=== PATIENT | male | born 1990 | race Caucasian/White ===

== ENCOUNTER 2018-07-18 07:05 | Emergency (ER) | payer OTHER, SELFPAY ==
[2018-07-18 07:10] VITALS: BP 136/89; PULSE 87; RESP 16; TEMP 36.2; O2SAT 96
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
[2018-07-18] MEDS: Tetracaine 0.5% 4 ML BTL (08:13)
== END 2018-07-18 08:15 | disposition home or self-care (01) ==
PROVIDERS: Emergency Provider Emergency Medicine; PCP Physician Assistant Medical
DX: T15.92XA Foreign body on external eye, part unspecified, left eye, initial encounter (principal); H57.12 Ocular pain, left eye; W25.XXXA Contact with sharp glass, initial encounter; V60.5XXA Driver of heavy transport vehicle injured in collision with pedestrian or animal in traffic accident, initial encounter; Y99.0 Civilian activity done for income or pay
CPT/HCPCS: 99284

== ENCOUNTER 2020-01-31 17:13 | Emergency (ER) | payer SELFPAY ==
[2020-01-31 17:20] VITALS: BP 105/87; PULSE 83; RESP 16; TEMP 37; O2SAT 96
--- NOTE | 2020-01-31 17:27 | W.ED.GENAD ---
Discharge Plan Disposition Patient Disposition: HOME Condition: Improving Discharge Details Chief Complaint: Laceration Clinical Impression: Laceration of right thumb Primary Care Provider: Bri Abbott ED Provider: Mike Chowdary Home Meds and New Rx's Prescriptions: No Action No Known Home Meds RF: 0 Discharge Instructions Instructions: Laceration (ED) Additional Instructions: May apply ice to reduce discomfort. Elevate the hand to reduce discomfort. May use Tylenol and/or ibuprofen as needed for pain. Leave the current dressing in place for 48 to 72 hours, then may remove, gently wash with soap and water, pat dry and replace dressing every 24 hours as we discussed. Return in 7 to 8 days time for suture removal. Return sooner for any acute concerns. Medical Decision Making 29-year-old male presents from home after lacerating the volar surface of his right thumb with a mandolin in his kitchen. No motor or sensory deficits. Patient anesthetized with a digital block, examined in a bloodless field without evidence of foreign body. Repaired with 3 interrupted nylon sutures. Wound dressed. Discussed the patient home care as well as indications to return and timing to seek evaluation for removal of sutures. HPI General Mode of arrival: ambulatory. Date/Time Provider Initiated Documentation: 01/31/20 17:27. Limitations to Documentation: no limitations. Information obtained by: patient. History of Present Illness 29 year old M presents to the emergency department with the chief complaint of Right thumb laceration at home, described as moderate, Quality is described as dull and constant, and is localized to the right and upper extremity. Patient reports no radiation. Patient started experiencing this minute(s) and it has been constant. No relieving factors improve symptom(s), No exacerbating factors reported . Patient notes no other symptoms.; denies weakness. Patient did receive the following treatments prior to arrival, other (Dressing and pressure placed at home) Related Data Home Medications Medication Instructions Recorded Confirmed Unknown [No Known Home Meds] 07/18/18 01/31/20 Allergies Allergy/AdvReac Type Severity Reaction Status Date / Time No Known Allergies Allergy Unverified 01/31/20 17:25 General Stated Complaint: Laceration KIERSTEN: 4 Review of Systems Narrative: Unsure of tetanus. He states he is otherwise recently been well. No numbness or weakness. [facility] Social History Smoking/Tobacco Use Status: Current every day Alcohol Intake: former Drug use: Never Do you feel safe at home: Yes Do you feel safe in your relationship?: Yes Exam Narrative Exam Narrative: GEN: awake, alert, oriented 3. Pleasant, well groomed, interactive. HEAD: Normocephalic, atraumatic ENT: Mucous membranes moist, oropharynx unremarkable, External ear exam unremarkable EYES: PERRL, EOMI EXT: Full ROM, no edema, no rash. Sensation is intact. The right thumb on the volar surface has a vertically oriented approximately 2-1/2 cm laceration. Does not violate the nailbed. Neuro: Grossly normal neurologic exam, conversant, interactive. Psych: Speech fluent, thoughts congruent, affect normal Course Vital Signs Vital signs: Vital Signs Temperature 37 C 01/31/20 17:20 Pulse 83 01/31/20 17:20 Respiratory Rate 16 01/31/20 17:20 Blood Pressure 105/87 01/31/20 17:20 Pulse Oximetry 96 01/31/20 17:20 Temperature 37 C 01/31/20 17:20 Temperature Source Temporal Artery Scan 01/31/20 17:20 Pulse 83 01/31/20 17:20 Respiratory Rate 16 01/31/20 17:20 Respiratory Effort Non-Labored 01/31/20 17:24 Blood Pressure 105/87 01/31/20 17:20 Blood Pressure Position Sitting 01/31/20 17:20 Pulse Oximetry 96 01/31/20 17:20 Oxygen Delivery Method Room Air 01/31/20 17:20 Oxygen Flow Rate 0 01/31/20 17:20 Pain Level 2 01/31/20 17:26 Procedures Laceration Laceration 1: Site: hand Side (If applicable): right Size (cm): 2 Description: linear Depth: simple, single layer Local Anesthetic: Lidocaine 1% Amount of anesthesia used (mL): 1.5 Pre-repair: wound explored and irrigated extensively Skin layer closed with: nylon Size (cm): 4-0 Number of sutures: 3 Technique: simple, interrupted
== END 2020-01-31 18:33 | disposition home or self-care (01) ==
PROVIDERS: Emergency Provider Emergency Medicine
DX: S61.011A Laceration without foreign body of right thumb without damage to nail, initial encounter (principal); W27.4XXA Contact with kitchen utensil, initial encounter
CPT/HCPCS: 12002; 90471

== ENCOUNTER 2020-02-08 11:40 | Emergency (ER) | payer SELFPAY ==
[2020-02-08 11:47] VITALS: BP 163/73; PULSE 74; RESP 16; TEMP 36.6; O2SAT 99
--- NOTE | 2020-02-08 12:03 | ED.GENADUL_ITS ---
Discharge Plan Disposition Patient Disposition: HOME Condition: Stable Discharge Details Chief Complaint: SutureRem Clinical Impression: Visit for suture removal Primary Care Provider: Bri Abbott ED Provider: Glendy Parrish Home Meds and New Rx's Prescriptions: No Action No Known Home Meds RF: 0 Discharge Instructions Instructions: Finger Laceration (ED) Additional Instructions: Please return immediately to the emergency department if you develop any new or worsening symptoms, if your condition does not improve as expected, or if you become otherwise concerned. It is extremely important that you call soon as possible to make an appointment to be seen in follow-up for this visit by your primary care doctor. Referrals: rBi Abbott [Primary Care Provider] - Medical Decision Making Vazquez Hampton is a 29-year-old man without reported history of major medical problems who presented to the emergency department for suture removal after being seen here for thumb laceration sustained while using a mandolin on 01/30 and receiving 3 sutures. On exam patient is very well and nontoxic-appearing. Laceration is healing and wound is clean/dry/intact, thumb is neurovascularly intact. Exam/history at this time is not consistent with infection, retained foreign body, nerve/tendon injury. Sutures removed by me without issue. Tetanus updated 01/30 per record review. I had a lengthy discussion with Patient regarding return to emergency department precautions, home care, and importance of outpatient follow-up. Pt verbalizes understanding of the plan and is amenable. Patient discharged to home with clear plan for outpatient follow-up. All questions were answered. Medical Records Medical records reviewed: Yes I reviewed the patient's medical records. HPI General Mode of arrival: ambulatory . Date/Time Provider Initiated Documentation: 02/08/20 11:55 . Limitations to Documentation: no limitations . Information obtained by: patient, RN notes reviewed and old records reviewed . HPI Narrative: Vazquez Anderson is a 29-year-old man without reported history of major medical problems presenting to the emergency department for suture removal. Patient was seen here 01/30 for a laceration to the right thumb sustained while using a mandolin. 3 stitches placed at that visit. Patient reports that since being seen in the emergency department he has had no issues or symptoms. No bleeding or drainage from the wound, no redness around the wound, no swelling, no pain. He denies fevers, any other pain, and reports that he feels well and in his usual state of health. Related Data Home Medications Medication Instructions Recorded Confirmed Unknown [No Known Home Meds] 07/18/18 02/08/20 Allergies Allergy/AdvReac Type Severity Reaction Status Date / Time No Known Allergies Allergy Unverified 02/08/20 11:50 General Stated Complaint: SutureRem KIERSTEN: 5 Review of Systems Narrative: Constitutional: denies fevers Eyes: denies eye pain ENT: denies ear pain, dental pain, sore throat Cardiovascular: denies chest pain GI: denies abdominal pain : denies flank pain MSK: denies back pain, neck pain, arthralgias, myalgias Skin: denies redness, drainage, or swelling of wound area Neuro: denies headaches [facility] Social History Smoking/Tobacco Use Status: Current every day Alcohol Intake: former Drug use: Never Substance use type: does not use Do you feel safe at home: Yes Do you feel safe in your relationship?: Yes Exam Narrative Exam Narrative: Constitutional: well and [id number], pleasant, conversing normally HENT: head atraumatic/normocephalic/normal inspection, mucous membranes moist Eyes: conjunctiva normal, sclera normal, pupils 3mm b/l Neck: no stridor, normal ROM, trachea midline Chest: normal inspection Resp: normal work of breathing Cardio: normal rate, normal rhythm Skin: warm, dry, normal color, no rash Neuro: alert, not altered, grossly non-focal, normal tone Ext: Moving all extremities equally, right distal volar thumb with healing laceration, no dehiscence, no erythema, no edema, no drainage. No tenderness to palpation. [address] Brisk cap refill, sensation intact. Psych: normal mood, normal affect, normal behavior Course Vital Signs Vital signs: Vital Signs Temperature 36.6 C 02/08/20 11:47 Pulse 74 02/08/20 11:47 Respiratory Rate 16 02/08/20 11:47 Blood Pressure 163/73 H 02/08/20 11:47 Pulse Oximetry 99 02/08/20 11:47 Temperature 36.6 C 02/08/20 11:47 Temperature Source Skin 02/08/20 11:47 Pulse 74 02/08/20 11:47 Respiratory Rate 16 02/08/20 11:47 Respiratory Effort Non-Labored 02/08/20 11:47 Blood Pressure 163/73 H 02/08/20 11:47 Blood Pressure Position Sitting 02/08/20 11:47 Pulse Oximetry 99 02/08/20 11:47 Oxygen Delivery Method Room Air 02/08/20 11:47 Oxygen Flow Rate 0 02/08/20 11:47 Pain Level 0 02/08/20 11:47
== END 2020-02-08 12:08 | disposition home or self-care (01) ==
LOC: ER 12:06
PROVIDERS: Emergency Provider Student in an Organized Health Care Education/Training Program
DX: S61.011D Laceration without foreign body of right thumb without damage to nail, subsequent encounter (principal); W27.4XXD Contact with kitchen utensil, subsequent encounter; Z48.02 Encounter for removal of sutures

== ENCOUNTER 2021-06-18 04:35 | Emergency (ER) | payer OTHER, SELFPAY ==
[2021-06-18] VITALS (18 sets, daily range): BP systolic 132–144; BP diastolic 74–91; PULSE 83–130; RESP 18–20; TEMP 36.7–37.3; O2SAT 93–97
--- NOTE | 2021-06-18 04:37 | ED.GENADUL_ITS ---
Discharge Plan Disposition Patient Disposition: [facility]ONEL [facility]ITO ([facility]) Condition: Stable Discharge Details Clinical Impression: Abscess, peritonsillar Primary Care Provider: Bri Abbott ED Provider: Lucas Prasad Home Meds and New Rx's Prescriptions: No Action No Known Home Meds RF: 0 Medical Decision Making Patient with large peritonsillar abscess on the left. Question is how far and how large is his abscess. He has trismus. He is unable to speak because of pain. He is unable to swallow including his secretions because of pain. His airway is protected at this point. Will place IV and start fluids. Will give morphine for pain control and clindamycin for infection. Laboratory studies and CT scan of the neck ordered. Patient doing better after fluids and morphine. Still sitting up and using suction to clear secretions due to continue pain with swallowing. White count markedly elevated. Chemistries unremarkable. CT scan shows large loculated left peritonsillar abscess measuring 3.3 x 1.9. There is surrounding phlegmon as well. This is not something amendable to being menstruation in the ED. Needs ENT is not available here today. I did call [facility] for transfer, but they are unable to take ED to ED transfer at this time. Spoke with [facility] emergency department physician, Dr. Engel. Patient accepted ED to ED transfer for ENT consult. Patient will go by ambulance with IV fluids and suction available. Patient aware of need for transfer and is agreeable. Lab Data Lab results reviewed: Yes I reviewed the patient's lab results. HPI General Mode of arrival: ambulatory . Date/Time Provider Initiated Documentation: 06/18/21 04:37 . Information obtained by: patient and RN notes reviewed . HPI Narrative: Patient presents to ED with severe throat pain. Patient reports developing sore throat about 4 days ago. It has become progressively worse. He is unable to swallow anything and at this point unable to even speak because of pain. He denies any difficulty breathing. He had fever yesterday. He has bilateral ear pain. He denies cough, chest pain, vomiting. He is not vaccinated against Covid. He is otherwise generally quite healthy. He does smoke. Finally came in as she is now having difficulty swallowing his own secretions. Related Data Home Medications Medication Instructions Recorded Confirmed Unknown [No Known Home Meds] 07/18/18 06/18/21 Allergies Allergy/AdvReac Type Severity Reaction Status Date / Time No Known Allergies Allergy Unverified 06/18/21 04:51 General KIERSTEN: 5 Review of Systems Constitutional Constitutional: Reports fever(s), Denies headache(s) and Denies weakness Eyes Eyes: Denies eye discharge ENT Ears, Nose, Mouth, and Throat: Reports otalgia, Denies headache(s), Reports odynophagia and Reports sore throat Cardiovascular Cardiovascular: Denies chest pain and Denies dyspnea Respiratory Respiratory: Denies cough and Denies dyspnea Gastrointestinal Gastrointestinal: Denies diarrhea, Denies nausea, Reports odynophagia and Denies vomiting Musculoskeletal Musculoskeletal: Denies back pain, Denies myalgias and Denies numbness Integumentary/Breasts Skin/Breast: Denies rash Neurologic Neurologic: Denies headache(s), Denies numbness and Denies weakness [facility] Medical History No significant past medical history Surgical History H/O shoulder surgery S/P appendectomy Social History Smoking/Tobacco Use Status: Current every day Smoking risk assessment performed?: Yes Alcohol Intake: former Drug use: Never Substance use type: does not use Do you feel safe at home: Yes Do you feel safe in your relationship?: Yes Exam Narrative Exam Narrative: Const: WDWN male in NAD. HEENT: NC/AT. Normal facial exam. Left TM is clear. Right TM not visualized due to cerumen. Patient with difficulty opening mouth fully. Significant erythema of the oropharynx. Significant swelling bilateral peritonsillar region but much more on the left. Uvula swollen. No exudate appreciated. Eyes: Normal conjunctiva and sclera. Neck: Supple. Trachea midline. Adenopathy present. Lungs: Normal respiratory effort. Lungs are clear. Cor: RRR without murmur/gallop. Neuro: A+O x 3. Normal mentation, gait. Cranial nerves II - XII grossly intact. No gross motor or sensory deficit. Ext: No C/C/E. Skin: Warm and dry without rash.
--- NOTE | 2021-06-18 04:45 | DI.CT_ITS ---
Exam(s) CT NECK W EXAM: CT NECK W CLINICAL HISTORY: abscess. TECHNIQUE: Imaging Protocol: Axial CT angiography was performed with multi-slice acquisition and mu lti-planar and/or 3D reconstructions. CONTRAST MATERIAL: Intravenous: Omnipaque 350 Contrast volume:structured data in ml COMPARISON: No exams were available for comparison FINDINGS: There is a 1 cm retention cyst in the anterior aspect of the right maxillary sinus. No fluid level n or other findings in the paranasal sinuses. No focal findings in the parotid and submandibular glands. Nasopharyngeal tissues appear mildly prominent, probably reactive. Tonsillar pillars are enlarged an d there is a left tonsillar abscess measuring approximately 3 x 2 cm and with some involvement of the left parapharyngeal space. The opposite-right tonsil is also significantly enlarged but does not ap pear to be abscessed. Wayne pharyngeal in the airway is somewhat narrowed at this level. Hypopharynx unremarkable. Valleculae and epiglottis unremarkable. Aryepiglottic folds appear unrema rkable. Vocal cords and subglottic airway unremarkable. Thyroid gland unremarkable. Lymph nodes: Slightly enlarged-probably reactive lymph nodes noted on both sides of the neck, slightl y more so on the left side. Vascular: No evidence of significant stenosis at the carotid bifurcations and proximal internal carot id arteries. No evidence of thrombosis of the internal jugular veins. Osseous: No significant osseous lesions. IMPRESSION: 1. Pharyngeal tonsils are enlarged bilaterally and there is left tonsillar abscess measuring approxim ately 3 x 2 cm and some lymph node enlargement which is most probably reactive. Mild narrowing of th e oropharyngeal airway but no airway obstruction. RADIATION DOSE DELIVERED: 475.17mGy.cm Total DLP DATA REPOSITORY: All CT scans at this facility are submitted to the National Radiology Data Registry (NRDR) Dose Index Registry (DIR) with the [employer] ([employer]). RADIATION OPTIMIZATION: All CT scans at this facility use at least one of these dose optimization te chniques: automated exposure control; mA and/or kV adjustment per patient size (includes targeted exa ms where dose is matched to clinical indication); or iterative reconstruction.
[2021-06-18 05:18] LABS: Source Nasal/Nares
[2021-06-18 05:20] LABS: Abs Immature Grans 0.09 10^3/uL (0.0-0.06); Absolute Basophil Count 0.07 10^3/uL (0.0-0.2); Absolute Lymphocyte Count 1.64 10^3/uL (1.2-3.4); Basophils % 0.3; HGB 16.8 g/dL (13.5-17.5); Immature Grans % 0.4; Lymphocytes % 7.5; MCH 30.5 pg (27.0-33.0); MCHC 34.3 % (32.0-36.0); MCV 88.9 fL (80-95); MPV 9.5 fL (8.0-11.0); Monocytes % 11.5; Neutrophils % 80.3; Nucleated RBC 0 %; Platelet Count 236 10^3/uL (130-400); RBC 5.51 10^6/uL (4.36-5.78); RDW 11.9 % (11.8-14.1); RDW-SD 39.1 fL; WBC 21.81 10^3/uL (4.4-10.8)
[2021-06-18] MEDS: Lactated Ringers 1,000 ML 1000 ML IV (05:20)
[2021-06-18] MEDS: MORPHine 10 MG/ML VIAL 5 MG IVP ×2 (05:20→07:24)
[2021-06-18 05:27] LABS: Absolute Monocyte Count 2.51 10^3/uL (0.1-0.8); Absolute Neutrophil Count 17.51 10^3/uL (1.2-6.7); Anion Gap 13.1 mmol/L (3-11); BUN 12 mg/dL (7-18); CO2 23.9 mmol/L (21.0-32.0); CREATININE 1.1 mg/dL (0.70-1.30); Calcium 9.3 mg/dL (8.5-10.1); Chloride 101 mmol/L (98-107); Glucose 130 mg/dL (74-106); Potassium 3.8 mmol/L (3.5-5.1); Sodium 138 mmol/L (136-145)
[2021-06-18 05:28] LABS: Diff Comment Agrees w/ Instrument
[2021-06-18 05:29] LABS: RBC Morphology Normal
[2021-06-18] MEDS: CLINDAMYCIN 600 MG/50 ML BAG 100 MG IVPB (05:50)
[2021-06-18] MEDS: Omnipaque 350 MG/ML 100 ML BTL IJ (05:51)
[2021-06-18 06:09] LABS: COVID-19 PCR Negative (Negative)
--- NOTE | 2021-06-18 06:19 | DI.VRAD_ITS ---
PROCEDURE INFORMATION: Exam: CT Neck With Contrast Exam date and time: 06/18/2021 5:02 AM Age: 30 years old Clinical indication: Abscess, cutaneous and abscess, tonsil and abscess, pharyngeal TECHNIQUE: Imaging protocol: Computed tomography images of the neck with contrast. Radiation optimization: All CT scans at this facility use at least one of these dose optimization techniques: automated exposure control; mA and/or kV adjustment per patient size (includes targeted exams where dose is matched to clinical indication); or iterative reconstruction. Contrast material: OMNIPAQUE 350; Contrast volume: 100 ml; Contrast route: INTRAVENOUS (IV); COMPARISON: No relevant prior studies available. FINDINGS: Nasopharynx: Unremarkable. Oropharynx: Enlarged left palatine tonsil with a lobulated multilocular fluid collection/abscess measuring at least 3.3 x 1.9 cm sagittal image 42. Mild fluid/phlegmon into the left submandibular space and left parapharyngeal space Hypopharynx: Unremarkable. Larynx: Unremarkable. Normal epiglottis. Retropharyngeal space: Unremarkable. Submandibular/Parotid glands: Glands are normal in size. No masses Thyroid: Normal. No enlarged or calcified nodules. Lymph nodes: Prominent left-sided jugulodigastric and lateral retropharyngeal lymph nodes are presumed reactive Trachea: Visualized trachea is unremarkable. Lungs: Unremarkable as visualized. Bones/joints: Unremarkable. No acute fracture. Soft tissues: Unremarkable. No significant soft tissue swelling. IMPRESSION: Left tonsillar abscess as described with adjacent prominent/mildly enlarged lymph nodes in the jugulodigastric and lateral retropharyngeal chains, presumed reactive Dictated and Authenticated by: Henry Byrd MD. Ordering:LUCIANO Zavala MD
[2021-06-18] MEDS: Lactated Ringers 1,000 ML 200 ML IV (07:15)
== END 2021-06-18 07:47 | disposition short-term general hospital (02) ==
PROVIDERS: Emergency Provider Emergency Medicine
DX: J36 Peritonsillar abscess (principal); R25.2 Cramp and spasm; H92.03 Otalgia, bilateral; F17.210 Nicotine dependence, cigarettes, uncomplicated; Z20.822 Contact with and (suspected) exposure to COVID-19; Z03.818 Encounter for observation for suspected exposure to other biological agents ruled out
CPT/HCPCS: 36415; 70491; 80048; 87635; 96361; 96365; 96375; 96376; 99285; 85025; J2270; J3490

== ENCOUNTER 2022-03-06 05:37 | Emergency (ER) | payer OTHER, SELFPAY ==
[2022-03-06 05:45] VITALS: BP 135/87; PULSE 116; RESP 18; TEMP 36.4; O2SAT 97
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
[2022-03-06 05:50] VITALS: BP 135/87; PULSE 111; RESP 20; TEMP 36.8; O2SAT 98
[2022-03-06] MEDS: Ondansetron 4 MG/2 ML VIAL IVP (06:10)
[2022-03-06] MEDS: Normal Saline 1,000 ML 1000 ML IV (06:10)
[2022-03-06 06:12] VITALS: BP 135/87; PULSE 111; RESP 20; TEMP 36.8; O2SAT 98
[2022-03-06 06:13] LABS: Abs Immature Grans 0.08 10^3/uL (0.0-0.06); Absolute Basophil Count 0.04 10^3/uL (0.0-0.2); Absolute Eosinophil Count 0.04 10^3/uL (0.0-0.7); Absolute Lymphocyte Count 0.35 10^3/uL (1.2-3.4); Absolute Monocyte Count 1.05 10^3/uL (0.1-0.8); Absolute Neutrophil Count 5.26 10^3/uL (1.2-6.7); Basophils % 0.6; Carboxyhemoglobin 3.4 %; Eosinophils % 0.6; HCT 45.3 % (40.0-50.0); HGB 15.4 g/dL (13.5-17.5); Immature Grans % 1.2; Lymphocytes % 5.1; MCH 30.5 pg (27.0-33.0); MCV 90 fL (80-95); MPV 9.4 fL (8.0-11.0); Monocytes % 15.4; Neutrophils % 77.1; Platelet Count 181 10^3/uL (130-400); RBC 5.05 10^6/uL (4.36-5.78); RDW 11.8 % (11.8-14.1); RDW-SD 38.2 fL; WBC 6.82 10^3/uL (4.4-10.8)
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
[2022-03-06 06:32] LABS: ALT 60 U/L (16-63); AST 30 U/L (15-37); Albumin 4.2 g/dL (3.4-5.0); Alkaline Phosphatase 73 U/L (46-116); Anion Gap 9.4 mmol/L (3-11); BUN 14 mg/dL (7-18); Bilirubin, Total 0.4 mg/dL (0.2-1.0); CO2 22.6 mmol/L (21.0-32.0); CREATININE 1.2 mg/dL (0.70-1.30); Calcium 8.6 mg/dL (8.5-10.1); Chloride 100 mmol/L (98-107); Glucose 140 mg/dL (74-106); Potassium 4.2 mmol/L (3.5-5.1); Sodium 132 mmol/L (136-145); Total Protein 7.5 g/dL (6.4-8.2); Troponin I < 50 ng/L (<or=60)
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
[2022-03-06] MEDS: Acetaminophen 325 MG TAB 650 MG PO (06:43)
--- NOTE | 2022-03-06 06:46 | NUR.NOTE ---
MAR not refreshing after completing the triage to open up to the other charting needs. pt was on NR upon arrival and pt was taken off NR at 0640. oncoming RN is made aware that MAR is not working
[2022-03-06 07:52] LABS: Influenza A PCR Negative (Negative); Influenza B PCR Negative (Negative); RSV PCR Negative (Negative)
--- NOTE | 2022-03-06 07:55 | NUR.NOTE ---
Nursing Note: COVID positive per lab @ [id number]. Katelynn Ballard
[2022-03-06 07:59] LABS: COVID-19 PCR Positive (Negative); Source Nasopharynx
== END 2022-03-06 09:13 | disposition home or self-care (01) ==
PROVIDERS: Emergency Provider Emergency Medicine
DX: U07.1 COVID-19 (principal); R42 Dizziness and giddiness; Z57.5 Occupational exposure to toxic agents in other industries; F17.210 Nicotine dependence, cigarettes, uncomplicated; R11.2 Nausea with vomiting, unspecified
CPT/HCPCS: 80053; 82375; 87637; 96361; 96374; 99283; 99284; 71045; 84484; 85025; J2405

== ENCOUNTER 2023-12-06 17:07 | Emergency (ER) | payer BC, SELFPAY ==
[2023-12-06 17:13] VITALS: BP 145/91; PULSE 89; RESP 18; TEMP 36.5; O2SAT 99
--- NOTE | 2023-12-06 17:30 | DI.RAD_ITS ---
Exam(s) XR FINGER LT RING EXAM: XR FINGER LT RING CLINICAL HISTORY: trauma distal phalanx, pain. TECHNIQUE: 2D digital imaging was performed. Three views. COMPARISON: None. FINDINGS: BONES: No acute fracture is present. No bony destructive lesion is seen. JOINTS: No dislocation present. SOFT TISSUE: Soft tissue defect at tip of finger. No foreign body or abnormal gas collection. IMPRESSION: Soft tissue swelling. DATA REPOSITORY: RADIATION DOSE DELIVERED:
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
[2023-12-06] MEDS: Bupivacaine 0.5% Pres-Free 30 ML VIAL IJ (19:28)
== END 2023-12-06 18:20 | disposition home or self-care (01) ==
PROVIDERS: Emergency Provider Student in an Organized Health Care Education/Training Program
DX: S61.251A Open bite of left index finger without damage to nail, initial encounter (principal); F17.200 Nicotine dependence, unspecified, uncomplicated; W23.0XXA Caught, crushed, jammed, or pinched between moving objects, initial encounter; Y93.89 Activity, other specified; Y92.89 Other specified places as the place of occurrence of the external cause
CPT/HCPCS: 12001; 99283; 73140; J0665